=== PATIENT | female | born 1960 | race Caucasian/White ===

== ENCOUNTER 2016-04-27 07:00 | Emergency (ER) ==
[2016-04-27 07:00] VITALS: BMI 23.8
[2016-04-27 07:05] VITALS: BP 98/60; TEMP 101.1
--- NOTE | 2016-04-27 07:17 | ED.PDOC ---
General ED Provider: Dr. MIKHAIL CAMERON Chief Complaint: Sore Throat Stated Complaint: sore throat Time Seen by Physician: 07:00 Mode of Arrival: Walk-In Information Source: Patient Exam Limitations: No limitations Nursing and Triage Documentation Reviewed and Agree: Yes EENT Complaint Exam - Throat Complaint/Exam Onset/Duration: 2 days Symptoms Are: Still present Timimg: Constant Initial Severity: Moderate Current Severity: Moderate Alleviating: Reports: None Associated Signs and Symptoms: Reports: Nasal congestion Uvula Midline: Yes Uma-tonsillar Fluctuence: No Scarlatinaform Rash Present: No Stridor Present: No Sinus Tenderness Present: No Tonsillar Hypertrophy Present: No Tonsillar Exudate Present: No Uma-tonsillar Swelling Present: No Adenopathy Present: No Splenomegaly Present: No Review of Systems - Review Of Systems Constitutional: Reports: No symptoms Eyes: Reports: No symptoms Ears, Nose, Mouth, Throat: Reports: Throat pain Respiratory: Reports: No symptoms Cardiac: Reports: No symptoms GI: Reports: No symptoms : Reports: No symptoms Musculoskeletal: Reports: No symptoms Skin: Reports: No symptoms Neurological: Reports: No symptoms Endocrine: Reports: No symptoms Hematologic/Lymphatic: Reports: No symptoms All Other Systems: Reviewed and Negative Past Medical History - Past Medical History Previously Healthy: Yes Endocrine: Reports: None Cardiovascular: Reports: None Respiratory: Reports: None Hematological: Reports: None Gastrointestinal: Reports: None Genitourinary: Reports: Kidney stones Neuro/Psych: Reports: None, Depression Musculoskeletal: Reports: None Cancer: Reports: None Last Menstrual Period: n/a - Surgical History General Surgical History: Reports: None - Family History Family History: Reports: None - Social History Smoking Status: Never smoker Hx Substance Use: No Alcohol Screening: Occasionally Physical Exam - Physical Exam Appearance: Well-appearing, No pain distress, Well-nourished Eyes: QUANG, EOMI, Conjunctiva clear ENT: Erythema Respiratory: Airway patent, Breath sounds clear, Breath sounds equal, Respirations nonlabored Cardiovascular: RRR, Pulses normal, No rub, No murmur GI/: Soft, Nontender, No masses, Bowel sounds normal, No Organomegaly Musculoskeletal: Normal strength, ROM intact, No edema, No calf tenderness Skin: Warm, Dry, Normal color Neurological: Sensation intact, Motor intact, Reflexes intact, Cranial nerves intact, Alert, Oriented Psychiatric: Affect appropriate, Mood appropriate Critical Care Note - Critical Care Note Total Time (mins): 0 Course - Course Vital Signs: Temp Pulse Resp BP Pulse Ox 04/27/16 07:03 101.1 F H 97 H 16 98/60 96 Departure - Departure Time of Disposition: 07:16 Disposition: HOME SELF-CARE Discharge Problem: Sore throat symptom Pharyngitis Qualifiers: Pharyngitis/tonsillitis etiology: unspecified etiology Qualifier Code: (J02.9) Acute pharyngitis, unspecified Condition: Good Pt referred to PMD for follow-up: No Additional Instructions: Please call your Family Physician as soon as possible to schedule a follow-up appointment. Allergies/Adverse Reactions: Allergies codeine Allergy (Unverified 04/27/16 07:05) Penicillins Allergy (Unverified 04/27/16 07:05) Sulfa (Sulfonamide Antibiotics) Allergy (Unverified 04/27/16 07:05) nitrofurantoin [From Macrodantin] Adverse Reaction (Verified 04/27/16 07:05) steroids Allergy (Uncoded 04/27/16 07:05) Home Medications: Ambulatory Orders Hydroxyzine HCl 25 mg PO QID #120 03/29/16 Sertraline HCl [Zoloft] 200 mg PO BEDTIME #60 03/29/16 Topiramate [Topamax] 50 mg PO BID #60 03/29/16 Buspirone HCl 15 mg PO TID 04/18/16 Hydrocodone/Acetaminophen [[place] 5-325 Tablet] 1 each PO Q6HR PRN #12 tablet Meloxicam 15 mg PO DAILY 04/18/16 Nitrofurantoin Macrocrystal [Nitrofurantoin] 100 mg PO Q12H 04/18/16 Trazodone HCl 50 mg PO BEDTIME 04/18/16
[2016-04-27] MEDS ORDERED: LIDOCAINE 1 % AMP 5 ML (SUTURES) IM STA (07:18)
[2016-04-27] MEDS ORDERED: ROCEPHIN IM STA (07:18)
== END 2016-04-27 08:06 | disposition home or self-care (01) ==
LOC: ED 07:00
DX: J02.9 Acute pharyngitis, unspecified (principal)
CPT/HCPCS: 87651; 87880; 96372; 99283

== ENCOUNTER 2016-07-06 13:37 | Outpatient (CLI) ==
[2016-07-06 14:51] LABS: BILIRUBIN,URINE Negative (NEGATIVE); KETONES,URINE Trace (NEGATIVE); LEUKOCYTE ESTERASE ,URINE 2+ (NEGATIVE); NITRITE,URINE Negative (NEGATIVE); PROTEIN,URINE Negative (NEGATIVE); URINE, BLOOD 1+ (NEGATIVE)
[2016-07-06 14:54] LABS: ADD URINE MICROSCOPIC YES
[2016-07-06 14:55] LABS: BACTERIA,URINE 1+ (NOT PRESENT)
[2016-07-06 15:17] LABS: ALBUMIN 4.1 g/dL (3.4-5.0); BILIRUBIN,DIRECT 0.11 mg/dL (0.00-0.30); BILIRUBIN,TOTAL 0.25 mg/dL (0.00-1.20); TOTAL PROTEIN 7.8 g/dL (6.4-8.2)
--- NOTE | 2016-07-06 15:26 | DI ---
EXAM: Chest two view, frontal and lateral views. HISTORY: Cough. COMPARISON: None available. FINDINGS: The heart size is normal. There is no pulmonary vascular congestion. The lungs are paul r. No pleural effusion or pneumothorax is seen. No acute osseous abnormality identified. IMPRESSION: No acute cardiopulmonary process.
[2016-07-06 15:40] LABS: ERYTHROCYTE SEDIMENTATION RATE 18 mm/hr (0-20); ESR INTERNAL QC INTERNAL QC VALID
[2016-07-07 07:49] LABS: URINE CREATINE 298.7 mg/dL (Not Estab.)
[2016-07-08 09:49] LABS: URINE PROTEIN/CREATININE RATIO 59 mg/g creat (0-200)
[2016-07-08 09:50] LABS: C-REACTIVE PROTEIN 8.5 mg/L (0.0-4.9)
== END 2016-07-06 13:38 | disposition home or self-care (01) ==
LOC: LAB 13:37
PROVIDERS: ATTEND Internal Medicine Rheumatology
DX: M25.50 Pain in unspecified joint (principal); R76.8 Other specified abnormal immunological findings in serum
CPT/HCPCS: 36415; 80076; 81001; 82570; 84156; 85651; 86140; 86200; 86225; 86235

== ENCOUNTER 2016-09-20 09:15 | Outpatient (CLI) ==
--- NOTE | 2016-09-20 09:59 | DI ---
EXAM: Right shoulder three views HISTORY: Pain COMPARISON: None FINDINGS: No fracture dislocation. Mild osteophyte formation about the acromioclavicular joint. Gl enohumeral joint appears normal. No focal soft tissue abnormality. Visualized portion of the chest i s normal. IMPERSSION: Mild osteoarthritis acromioclavicular joint
--- NOTE | 2016-09-20 09:59 | DI ---
EXAM: Cervical spine five views HISTORY: Pain COMPARISON: None TECHNIQUE: Five views cervical spine performed including oblique views FINDINGS: Vertebral bodies normal height. No fracture. No subluxation. Straightening of the norm al cervical lordosis. Marginal osteophyte formation. Moderate intervertebral disc space narrowing C6-C7. Multilevel facet and uncovertebral hypertrophy. Degenerative changes cause mild multilevel bilateral neural foraminal narrowing. Additionally, on the left, there appears to be moderate to se guzman neural foraminal narrowing at C3-C4, though this may be accentuated by positioning, as well as moderate neural foraminal narrowing at C6-C7. Prevertebral soft tissues appear normal. IMPRESSION: 1. No fracture or subluxation. 2. Chronic discogenic degenerative disease with neural foraminal narrowing as described. Findings can be correlated with MRI. 3. Straightening of the normal cervical lordosis.
== END 2016-09-20 09:16 | disposition home or self-care (01) ==
LOC: RAD 09:15
PROVIDERS: ATTEND Physician Assistant Medical
DX: M25.511 Pain in right shoulder (principal); M54.2 Cervicalgia

== ENCOUNTER 2016-10-01 10:31 | Outpatient (CLI) ==
--- NOTE | 2016-10-01 17:54 | MRI ---
EXAM: Cervical spine MRI without contrast. HISTORY: Neck pain. COMPARISON: Cervical spine radiographs 09/20/2016. TECHNIQUE: Multiplanar, multisequence MR images were acquired of the cervical spine without contras t. FINDINGS: There is no cerebellar tonsillar ectopia and the cervical cord has normal signal intensit y. There is minor mid cervical levoscoliosis centered at C4-5 and mild cervicothoracic dextroscolio sis centered at C6-7. There is straightening of the usual cervical lordosis and 1 mm anterolisthesi s of C7 on T1. The cervical vertebra are generally normal in height and intrinsic bone marrow signa l. At C6-7, there is osteophytosis with disc space narrowing and moderate degenerative endplate farzana nges with reactive dark STIR signal sclerosis along the endplates which are greatest left laterally. This is compatible with chronic increased stress at this level. A few small perineural cysts are p resent. There are no paravertebral masses. There is mild mucosal thickening in the sphenoid sinus. The visualized lung apices are clear. C2-3: The intervertebral disc is normal. Mild right hypertrophic facet arthropathy is present witho ut foraminal stenosis. C3-4: There is a minor dorsal spondylotic ridge with mild thickening of the left paracentral professor of pathology ior longitudinal ligament. Mild left and mild to moderate right hypertrophic facet arthropathy is p resent without central canal stenosis or foraminal stenosis. C4-5: There is a mild dorsal spondylotic disc bulge with a possible tiny central disc protrusion th at minimally indents the cervical cord. Minor left uncovertebral hypertrophy and mild right hypertr ophic facet arthropathy is present. This causes mild to moderate right neural foraminal stenosis an d minor spinal stenosis. AP diameter of the thecal sac is 9.6 mm. C5-6: There is a minor posterior disc osteophyte complex with a small central disc protrusion that mildly indents the cervical cord. Ligamentum flavum hypertrophy, minor right uncovertebral hypertrop hy and mild right facet arthropathy is present. There is mild spinal stenosis and mild left and mil d to moderate right neural foraminal stenosis. AP diameter of the thecal sac is 8.6 mm. C6-7: There is a moderate diffuse disc osteophyte complex, ligamentum flavum hypertrophy, mild left hypertrophic facet arthropathy and bilateral uncovertebral hypertrophy. There is mild spinal steno sis and severe left neural foraminal stenosis. AP diameter of the thecal sac is 7.8 mm. C7-T1: There is a small posterior disc bulge, minor left uncovertebral hypertrophy and mild to mode rate left hypertrophic facet arthropathy. There is mild left foraminal stenosis. IMPRESSION: 1. Mild cervicothoracic dextroscoliosis centered at C6-7 and moderate discogenic disease C6-7 that is greatest left laterally suggestive of chronic increased stress at this level. 2. Mild disc osteophyte complex C5-6 with small central disc protrusion that mildly indents the cer vical cord without edema. 3. Mild spinal stenosis C5-6 and C6-7. 4. Mild to moderate right C4-5, mild to moderate left C5-6 and severe left C6-[address] enosis.
== END 2016-10-01 10:32 | disposition home or self-care (01) ==
LOC: RAD 10:31
PROVIDERS: ATTEND Physician Assistant Medical
DX: M54.2 Cervicalgia (principal)

== ENCOUNTER 2016-10-19 15:55 | Outpatient (CLI) ==
[2016-10-19 16:16] LABS: HEMATOCRIT 43.8 % (37.0-47.0); HEMOGLOBIN 15.1 g/dl (12.0-16.0); MEAN CORPUSCULAR HEMOGLOBIN 31.2 pg (27.0-31.0); MEAN CORPUSCULAR HGB CONC 34.5 (31.8-35.4); MEAN CORPUSCULAR VOLUME 90.5 fl (81.0-99.0); RED BLOOD COUNT 4.84 10^6/ul (4.20-5.40); WHITE BLOOD COUNT 8.42 K/ul (4.6-10.2)
[2016-10-19 16:33] LABS: ALBUMIN 4.2 g/dL (3.4-5.0); ALBUMIN/GLOBULIN RATIO 1.31; BILIRUBIN,TOTAL 0.52 mg/dL (0.00-1.20); BUN/CREATININE RATIO 13.09; CALCIUM 9.6 mg/dL (8.2-10.2); CREATININE 0.84 mg/dL (0.60-1.30); TOTAL PROTEIN 7.4 g/dL (6.4-8.2)
== END 2016-10-19 15:56 | disposition home or self-care (01) ==
LOC: LAB 15:55
PROVIDERS: ATTEND Internal Medicine Rheumatology
DX: M06.9 Rheumatoid arthritis, unspecified (principal)
CPT/HCPCS: 36415; 80053; 85027

== ENCOUNTER 2016-10-22 10:02 | Outpatient (RCR) | END 2016-11-19 | PROVIDERS: ATTEND Physician Assistant Medical | DX: M54.5 Low back pain (principal) ==

== ENCOUNTER 2016-12-18 15:00 | Outpatient (RCR) ==
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
--- NOTE | 2016-11-26 16:22 | RS.OPPTDN ---
Subjective Date of Note: 11/26/16 Visit #: 2 Date of Evaluation: 11/20/16 Payer Source: Medicaid Treatment Diagnosis: Neck pain Current Subjective/complaints:: Patient says she had a little soreness to her neck after her previous session. She presents with her service dog. Pain Assessment - Pain Description Pain Location: neck/shoulder Current Pain Intensity: 5/10 - Heat/Cryotherapy Treatment: Hot Pack (20 mins cervical in supine) - Traction Treatment Method: Mechanical, Intermittent, Cervical Patient Position: Supine Amount of Force Applied: 13-14 Hold Time: 25 Rest Time: 5 Duration of treatment: 15 Traction Treatment Comment: 2 steps, 1# minimum Interventions - Exercise/Activities/Manual Therapy Exercises/Activities: Encouraged continued HEP and use of heat/ice Manual Therapy: NA - Charges Total Direct Minutes: 5 Total Treatment Time: 40 Procedures billed for this date of service:: hp, mechanical traction Assessment: Patient teresa increased traction well with admitting improved neck ROM /soreness after session today. Patient Education: Education of diagnosis, Body/Joint mechanics, Home Exercise Program, Home Safety, Activity Modification, Education of Plan of Care Patient demonstrates compliance with HEP?: Yes Short Term Goals Goal #1: Pt independent in basic HEP. Goal to be met by: 12/04/16 Progress towards Goal:: Progressing Goal #2: Radiating symtpoms decreased to occasional. Goal to be met by: 12/04/16 Goal #3: Muscle tone along the cervical paraspinals decreased to normal. Goal to be met by: 12/04/16 Alf Goals Goal #1: Pt knows HEP and to continue ex's to maintain functional level at D/C. Goal to be met by: 01/04/17 Goal #2: Score on Neck Disability index improved to 40. Goal to be met by: 01/04/17 Goal #3: Pt to perform ADL's and recreational activities w/o neck or UE pain. Goal to be met by: 01/04/17 Goal #4: Pt to demonstrate good postural awareness. Goal to be met by: 01/04/17 Plan PLAN OF CARE EXPIRES ON:: 01/04/17 ORDER # VISITS AND/OR THROUGH DATE: 01/04/17 PLAN: Continue Plan of Care (progress traction)
--- NOTE | 2016-11-29 16:45 | RS.OPPTDN ---
Subjective Date of Note: 11/29/16 Visit #: 3 Date of Evaluation: 11/20/16 Payer Source: Medicaid Treatment Diagnosis: Neck pain Current Subjective/complaints:: Patient says neck pain felt better with last session. She says increase in traction did not bother her. She c/o R sciatica and inquires of PT for this condition. Pain Assessment - Pain Description Pain Location: neck/shoulder Current Pain Intensity: 4/10 - Heat/Cryotherapy Treatment: Hot Pack (cervical x 20 mins in supine) - Traction Treatment Method: Mechanical, Intermittent, Cervical Patient Position: Supine Amount of Force Applied: 15-16 Hold Time: 25 Rest Time: 5 Duration of treatment: 20 Traction Treatment Comment: 2 steps Interventions - Exercise/Activities/Manual Therapy Exercises/Activities: Encouraged continued HEP and use of heat/ice. Discussed sciatica and using ice/tennis ball for pressure points. Provided tennis ball today. Manual Therapy: NA - Charges Total Direct Minutes: 10 Total Treatment Time: 50 Procedures billed for this date of service:: hp, mechanical traction Assessment: Patient teresa increasing weight of traction with less neck pain following session. Patient received education on sciatica per inquiry and tennis ball for self pressure techniques. Patient Education: Education of diagnosis, Body/Joint mechanics, Home Exercise Program, Home Safety, Activity Modification, Education of Plan of Care Patient demonstrates compliance with HEP?: Yes Short Term Goals Goal #1: Pt independent in basic HEP. Goal to be met by: 12/04/16 Progress towards Goal:: Progressing Goal #2: Radiating symtpoms decreased to occasional. Goal to be met by: 12/04/16 Progress towards Goal:: Progressing Goal #3: Muscle tone along the cervical paraspinals decreased to normal. Goal to be met by: 12/04/16 [facility] Goals Goal #1: Pt knows HEP and to continue ex's to maintain functional level at D/C. Goal to be met by: 01/04/17 Goal #2: Score on Neck Disability index improved to 40. Goal to be met by: 01/04/17 Goal #3: Pt to perform ADL's and recreational activities w/o neck or UE pain. Goal to be met by: 01/04/17 Goal #4: Pt to demonstrate good postural awareness. Goal to be met by: 01/04/17 Plan PLAN OF CARE EXPIRES ON:: 01/04/17 ORDER # VISITS AND/OR THROUGH DATE: 01/04/17 PLAN: Continue Plan of Care (advancing traction, postural exercises)
--- NOTE | 2016-12-04 10:19 | RS.CXNS ---
Date of scheduled appointment: 12/04/16 Type: Cancel Reason for Cancel/NS: sick
--- NOTE | 2016-12-06 16:42 | RS.OPPTDN ---
Subjective Date of Note: 12/06/16 Visit #: 4 Date of Evaluation: 11/20/16 Payer Source: Medicaid Treatment Diagnosis: Neck pain Current Subjective/complaints:: Patient says she has just taken her 4th chemo treatment today and feels nauseated. She presents with her service dog. Pain Assessment - Pain Description Pain Location: neck/shoulder Current Pain Intensity: 4/10 - Heat/Cryotherapy Treatment: Hot Pack (20 mins cervical in supine) - Traction Treatment Method: Mechanical, Intermittent, Cervical Patient Position: Supine Amount of Force Applied: 16 Hold Time: 25 Rest Time: 5 Duration of treatment: 20 Interventions - Exercise/Activities/Manual Therapy Exercises/Activities: Encouraged continued HEP and use of heat/ice. Discussed sciatica and using ice/tennis ball for pressure points. Provided tennis ball today. Manual Therapy: NA - Charges Total Direct Minutes: 10 Total Treatment Time: 30 Procedures billed for this date of service:: hp, mechanical traction Assessment: Patient progressing with pain level and muscle tightness. She teresa increased poundage well. Will continue to progress traction and begin therex to the shoulder. Patient Education: Education of diagnosis, Body/Joint mechanics, Home Exercise Program, Home Safety, Activity Modification, Education of Plan of Care Patient demonstrates compliance with HEP?: Yes Short Term Goals Goal #1: Pt independent in basic HEP. Goal to be met by: 12/04/16 Progress towards Goal:: Progressing Goal #2: Radiating symtpoms decreased to occasional. Goal to be met by: 12/04/16 Progress towards Goal:: Progressing Goal #3: Muscle tone along the cervical paraspinals decreased to normal. Goal to be met by: 12/04/16 Prison Goals Goal #1: Pt knows HEP and to continue ex's to maintain functional level at D/C. Goal to be met by: 01/04/17 Goal #2: Score on Neck Disability index improved to 40. Goal to be met by: 01/04/17 Goal #3: Pt to perform ADL's and recreational activities w/o neck or UE pain. Goal to be met by: 01/04/17 Goal #4: Pt to demonstrate good postural awareness. Goal to be met by: 01/04/17 Plan PLAN OF CARE EXPIRES ON:: 01/04/17 ORDER # VISITS AND/OR THROUGH DATE: 01/04/17 PLAN: Continue Plan of Care
--- NOTE | 2016-12-11 16:45 | RS.OPPTDN ---
Subjective Date of Note: 12/11/16 Visit #: 5 Date of Evaluation: 11/20/16 Payer Source: Medicaid Treatment Diagnosis: Neck pain Current Subjective/complaints:: Patient c/o mild pain at the L shoulder blade. She says therapy feels like it is helping and she wished she was able to have a home traction unit due to the improvement in neck pain. Pain Assessment - Pain Description Pain Location: L scapula Current Pain Intensity: 4/10 - Heat/Cryotherapy Treatment: Hot Pack (cross finley over the L scapula and neck x 20 mins in supine) - Traction Treatment Method: Mechanical, Intermittent, Cervical Patient Position: Supine Amount of Force Applied: 18-19 Hold Time: 25 Rest Time: 5 Duration of treatment: 20 Interventions - Exercise/Activities/Manual Therapy Exercises/Activities: Patient sits at EOB for shoulder shrugs and scapular adduction, 1# wand for bilateral shoulder flexion to WNL, red tband for scap retraction (given for home use). Encouraged continued HEP and use of heat/ice. Discussed sciatica and using ice/tennis ball for pressure points. Provided tennis ball today. Total minutes of Exercise: 5 Manual Therapy: NA - Charges Total Direct Minutes: 5 Total Treatment Time: 45 Procedures billed for this date of service:: hp, traction (mechanical) Assessment: Patient experiencing relief with today's traction poundage more so than any other previous treatment. She was able to perform all therex without c /o's. Received tband to work on scapular/posture exercises at home. Decreased scapular pain at end of session. Patient Education: Education of diagnosis, Body/Joint mechanics, Home Exercise Program, Home Safety, Activity Modification, Education of Plan of Care Patient demonstrates compliance with HEP?: Yes Short Term Goals Goal #1: Pt independent in basic HEP. Goal to be met by: 12/04/16 Progress towards Goal:: Progressing Goal #2: Radiating symtpoms decreased to occasional. Goal to be met by: 12/04/16 Progress towards Goal:: Progressing Goal #3: Muscle tone along the cervical paraspinals decreased to normal. Goal to be met by: 12/04/16 Progress towards Goal:: Progressing Specialist Managers Goals Goal #1: Pt knows HEP and to continue ex's to maintain functional level at D/C. Goal to be met by: 01/04/17 Goal #2: Score on Neck Disability index improved to 40. Goal to be met by: 01/04/17 Goal #3: Pt to perform ADL's and recreational activities w/o neck or UE pain. Goal to be met by: 01/04/17 Goal #4: Pt to demonstrate good postural awareness. Goal to be met by: 01/04/17 Plan PLAN OF CARE EXPIRES ON:: 01/04/17 ORDER # VISITS AND/OR THROUGH DATE: 01/04/17 PLAN: Continue Plan of Care (continue x 1 more session)
--- NOTE | 2016-12-13 13:22 | RS.CXNS ---
Date of scheduled appointment: 12/13/16 Type: Cancel Reason for Cancel/NS: sick from chemo, rescheduled
--- NOTE | 2016-12-18 16:35 | RS.OPPTDN ---
Subjective Date of Note: 12/18/16 Visit #: 6 Date of Evaluation: 11/20/16 Payer Source: Medicaid Treatment Diagnosis: Neck pain Current Subjective/complaints:: Patient says she hurt her upper L side of her back by opening a window. She says she had slight soreness to her neck after last traction treatment, but was better the next morning. She requests to return to PT if she receives her letter that approves more visits. Christiane reports performing HEP without difficulty. Pain Assessment - Pain Description Pain Location: L scapula, L shoulder and mid to upper back Current Pain Intensity: 4/10 - Heat/Cryotherapy Treatment: Hot Pack (over the L shoulder and neck x 20 mins supine) - Traction Treatment Method: Mechanical, Intermittent, Cervical Patient Position: Supine Amount of Force Applied: 20 Hold Time: 25 Rest Time: 5 Duration of treatment: 20 Traction Treatment Comment: 2 steps Interventions - Exercise/Activities/Manual Therapy Exercises/Activities: Patient encouraged to continue HEP and instructed in standing and prone prayer stretch for the upper/mid back during heat/traction. Total minutes of Exercise: 20 Manual Therapy: NA - Charges Total Direct Minutes: 20 Total Treatment Time: 60 Procedures billed for this date of service:: hp, mechanical traction Assessment: Patient with recent c/o mid to upper back pain. She is also having intermittent tingling to the L UE. Patient Education: Education of diagnosis, Body/Joint mechanics, Home Exercise Program, Home Safety, Activity Modification, Education of Plan of Care Patient demonstrates compliance with HEP?: Yes Short Term Goals Goal #1: Pt independent in basic HEP. Goal to be met by: 12/04/16 Progress towards Goal:: Progressing Goal #2: Radiating symtpoms decreased to occasional. Goal to be met by: 12/04/16 Progress towards Goal:: Progressing Goal #3: Muscle tone along the cervical paraspinals decreased to normal. Goal to be met by: 12/04/16 Progress towards Goal:: Progressing Head Up Operator Helper Goals Goal #1: Pt knows HEP and to continue ex's to maintain functional level at D/C. Goal to be met by: 01/04/17 Progress towards goal: Progressing Goal #2: Score on Neck Disability index improved to 40. Goal to be met by: 01/04/17 Progress towards goal: Progressing Goal #3: Pt to perform ADL's and recreational activities w/o neck or UE pain. Goal to be met by: 01/04/17 Goal #4: Pt to demonstrate good postural awareness. Goal to be met by: 01/04/17 Plan PLAN OF CARE EXPIRES ON:: 01/04/17 ORDER # VISITS AND/OR THROUGH DATE: 01/04/17 Comments:: We are holding chart in order to see if further visits are approved via [employer]. Patient will call us once she has received the letter and may resume treatment then. She is also going to contact her insurance to see if they will approve a home traction device along with looking online.
== END 2016-12-20 ==
PROVIDERS: ATTEND Internal Medicine Rheumatology
DX: M54.2 Cervicalgia (principal)

== ENCOUNTER 2017-01-04 15:00 | Outpatient (RCR) ==
[2016-04-27 07:24] VITALS: BMI 23.8
--- NOTE | 2017-01-01 16:21 | RS.OPPTDN ---
Subjective Date of Note: 01/01/17 Visit #: 7 Date of Evaluation: 11/20/16 Payer Source: Medicaid Treatment Diagnosis: Neck pain Current Subjective/complaints:: Patient says her pain has been elevated lately she relates to damp, cooler weather. She admits today having tingling running down the L arm to hand. She reports daily DENNY for one week. She is eager to continue to progress traction. Pain Assessment - Pain Description Pain Location: L scapula, L shoulder and mid to upper back Current Pain Intensity: 4/10 - Heat/Cryotherapy Treatment: Hot Pack (20 mins to the L side of the neck and scapula in supine) - Traction Treatment Method: Mechanical, Intermittent, Cervical Patient Position: Supine Amount of Force Applied: 20-21 Hold Time: 25 Rest Time: 5 Duration of treatment: 20 Traction Treatment Comment: 2 steps Interventions - Exercise/Activities/Manual Therapy Exercises/Activities: Patient encouraged to continue HEP and instructed in standing and prone prayer stretch for the upper/mid back during heat/traction. Manual Therapy: occipital release and manual cervical traction x 10 mins. Assisted cervical SB and rotation in supine utilized until mechanical traction room was available. Total minutes of Manual Therapy: 10 - Charges Total Direct Minutes: 10 Total Treatment Time: 50 Procedures billed for this date of service:: hp, mechanical traction Assessment: Patient with elevated pain today possibly due to weather changes as well as hx of fibromyalgia. Patient presently having intermittent tingling to the L UE to hand. During manual therapy, patient voiced improved neck pain and feeling of UE radiculopathy. After mechanical traction, patient voiced improved DENNY and neck tension. Patient Education: Education of diagnosis, Body/Joint mechanics, Home Exercise Program, Home Safety, Activity Modification, Education of Plan of Care Patient demonstrates compliance with HEP?: Yes Short Term Goals Goal #1: Pt independent in basic HEP. Goal to be met by: 12/04/16 Progress towards Goal:: Progressing Goal #2: Radiating symtpoms decreased to occasional. Goal to be met by: 12/04/16 Progress towards Goal:: Progressing Goal #3: Muscle tone along the cervical paraspinals decreased to normal. Goal to be met by: 12/04/16 Progress towards Goal:: Progressing Underwriting Intern Goals Goal #1: Pt knows HEP and to continue ex's to maintain functional level at D/C. Goal to be met by: 01/04/17 Progress towards goal: Progressing Goal #2: Score on Neck Disability index improved to 40. Goal to be met by: 01/04/17 Progress towards goal: Progressing Goal #3: Pt to perform ADL's and recreational activities w/o neck or UE pain. Goal to be met by: 01/04/17 Goal #4: Pt to demonstrate good postural awareness. Goal to be met by: 01/04/17 Plan PLAN OF CARE EXPIRES ON:: 01/04/17 ORDER # VISITS AND/OR THROUGH DATE: 01/04/17
--- NOTE | 2017-01-03 14:43 | RS.CXNS ---
Date of scheduled appointment: 01/03/17 Type: No Show
== END 2017-01-19 ==
PROVIDERS: ATTEND Internal Medicine Rheumatology
DX: M54.2 Cervicalgia (principal)

== ENCOUNTER 2017-01-30 15:57 | Outpatient (CLI) ==
[2016-04-27 07:24] VITALS: BMI 23.8
[2017-01-30 16:13] LABS: BASOPHILS % (AUTO) 0.4 % (0.0-3.0); EOSINOPHILS # (AUTO) 0.1 K/ul (0.0-0.7); EOSINOPHILS % (AUTO) 1.1 % (0.0-7.0); HEMATOCRIT 39.9 % (37.0-47.0); HEMOGLOBIN 13.8 g/dl (12.0-16.0); IMMATURE GRANULOCYTE % (AUTO) 0.8 % (0.0-5.0); LYMPHOCYTES # (AUTO) 2.6 K/uL (0.60-3.4); LYMPHOCYTES % (AUTO) 28.5 (10.0-50.0); MEAN CORPUSCULAR HEMOGLOBIN 31.4 pg (27.0-31.0); MEAN CORPUSCULAR HGB CONC 34.6 (31.8-35.4); MEAN CORPUSCULAR VOLUME 90.9 fl (81.0-99.0); MONOCYTES # (AUTO) 0.5 K/uL (0.4-2.0); NEUTROPHILS # (AUTO) 5.7 K/ul (2.0-6.9); NEUTROPHILS % (AUTO) 63.2; PLATELET COUNT 256 10^3/uL (140-440); RED BLOOD COUNT 4.39 10^6/ul (4.20-5.40); WHITE BLOOD COUNT 8.99 K/ul (4.6-10.2)
[2017-01-30 16:37] LABS: ALBUMIN/GLOBULIN RATIO 1.21; ANION GAP 14.8; BILIRUBIN,TOTAL 0.4 mg/dL (0.00-1.20); BUN/CREATININE RATIO 15.11; CREATININE 0.86 mg/dL (0.60-1.30); POTASSIUM 3.8 mmol/L (3.5-5.10); TOTAL PROTEIN 7.3 g/dL (6.4-8.2)
== END 2017-01-30 15:58 | disposition home or self-care (01) ==
LOC: LAB 15:57
PROVIDERS: ATTEND Internal Medicine Rheumatology
DX: Z79.899 Other long term (current) drug therapy (principal)
CPT/HCPCS: 36415; 80053; 85025

== ENCOUNTER 2017-05-15 14:11 | Outpatient (CLI) ==
[2016-04-27 07:24] VITALS: BMI 23.8
--- NOTE | 2017-05-15 16:46 | DI ---
EXAM: Three views of the right hand HISTORY: Rheumatoid arthritis. COMPARISON: None FINDINGS: There is no cortical irregularity or displaced fracture of the right hand. There is no lyt ic or blastic lesion. The joint spaces are maintained. There is no lytic or blastic lesion. Soft t issues are normal. IMPRESSION: No acute abnormality or displaced fracture of the right hand.
--- NOTE | 2017-05-15 16:47 | DI ---
EXAM: Three views of the left hand HISTORY: Rheumatoid arthritis. COMPARISON: Same day, opposite hand x-rays FINDINGS: There is no cortical irregularity or displaced fracture of the left hand. There is no lyti c or blastic lesion. The joint spaces are maintained. There is no significant narrowing or osteophy te formation. There is minimal narrowing the radiocarpal joint. Soft tissues are unremarkable. IMPRESSION: Minimal radiocarpal joint narrowing with no acute osseous abnormality otherwise identifi ed.
--- NOTE | 2017-05-15 16:49 | DI ---
EXAM: Two views of the left foot HISTORY: Rheumatoid arthritis. COMPARISON: Same day, opposite foot FINDINGS: There is no cortical irregularity or displaced fracture of the left foot. The joint spaces are maintained. The arch is maintained. The soft tissues are unremarkable. IMPRESSION: No acute abnormality of the left foot.
--- NOTE | 2017-05-15 16:49 | DI ---
EXAM: Two views of the right foot HISTORY: Rheumatoid arthritis. COMPARISON: Left foot x-rays same day FINDINGS: There is no cortical irregularity or displaced fracture. The joint spaces are maintained. The arch is maintained. The soft tissues are normal. There is no lytic or blastic lesion. IMPRESSION: No acute abnormality or displaced fracture of the right foot.
--- NOTE | 2017-05-15 16:50 | DI ---
EXAM: Single view of the pelvis and two views of the hips HISTORY: Rheumatoid arthritis. COMPARISON: CT abdomen pelvis 04/18/2016 FINDINGS: The pelvic ring is intact. There is no cortical irregularity or displaced fracture. Sacro iliac joints and pubic symphysis are normal. The dedicated views of the hips are normal. There is n o narrowing, osteophyte formation. There is no displaced fracture. IMPRESSION: No acute abnormality of the hips or pelvis.
== END 2017-05-15 14:12 | disposition home or self-care (01) ==
LOC: LAB 14:11
PROVIDERS: ATTEND Internal Medicine Rheumatology
DX: M05.79 Rheumatoid arthritis with rheumatoid factor of multiple sites without organ or systems involvement (principal); E78.2 Mixed hyperlipidemia; E55.0 Rickets, active; R30.0 Dysuria
CPT/HCPCS: 36415; 80053; 80061; 81001; 82306; 84439; 84443; 85025

== ENCOUNTER 2017-06-18 14:00 | Outpatient (RCR) ==
[2016-04-27 07:24] VITALS: BMI 23.8
--- NOTE | 2017-06-17 13:27 | RS.OPPTEV2 ---
Date of Note: 06/14/17 Visit #: 1 Date of Evaluation: 06/14/17 Payer Source: Medicaid Treatment Diagnosis: Left hip pain History of Condition/Mechanism of Injury:: Patient reports left hip pain for approximately a year. States it has been more consistent over the last few months. Reports no injury to the left hip. States she did injure the right hip in 1999, and states she could not walk and then may have compensated with the left LE when she was able to start walking again. Prior Level of Function.....Patient was independent with: ADL's, Self Care, Caregiving, Ambulation/Mobility, Community Integration/Access Functional Limitations: Standing, Bending, Squatting, Ambulation, Community Access/Integration Current Subjective/complaints:: Patient reports left hip pain. States it feels like a catch on the inside, in the groin. States it happens sporadically with getting up or turning while standing. She denies tingling or numbness. States pain in the left hip is not necessarily with weight bearing. Does reports pain with ascending/descending stairs. She has to negotiate stairs to get to her apartment. States her pain has been more continuous for the last few months. Medical History Medical History: Arthritis (Rheumatoid) Medical History Comments:: PTSD,RA, Fibromyalgia Surgical History: Tonsillectomy, Hysterectomy Smoking Status: Former smoker Hx Home Medications: Tylenol,gabapentin,Zoloft,buspar,flexeril,mobic,arava Patient's Goals: Her goal is to get relief of left hip pain. Pain Assessment - Pain Description Pain Location: left hip, groin region Current Pain Intensity: 5/10 Worst Pain Intensity: 10/10 Functional Outcome Measure LE Functional Scale: 20 (20/80=75% impairment) - G Codes & Severity Modifier G Codes & Modifier: NA Source of G Code score: NA Observation - Observation Inspection: Standing posture demonstrates slight decrease in lumbar lordosis and slight IR of of both hips. Posture: Scoliosis Comments: Right iliac crest higher in standing. Gait - Gait Pattern Gait Comments: Patient ambulates independently, without an assistive device. She demonstrates slightly less stance phase on the left LE and decreased left hip and knee flexion during swing phase. - Special Tests SLR Test: Negative Left Seated Dural Stretch Test: Negative Left SI Joint Compression: Negative Comments: Supine hip IR or ER with legs extended does not reproduce symptoms. Hip ROM: Right WFL's Hip Muscle Strength: Right WFL's - Left Hip ROM Comments: Left hip AROM limited by pain into flexion beyond 100 degrees, adduction past midline, and abduction past 30 degrees. ER is approximately 50% of normal range and IR causes discomfort. - Left Hip Strength Comments: Left hip strength : flexion 4/5, abd 4/5, adduction 4/5, ER and IR 4-/ 5, extension 4+/5. Some discomfort reported with MMT hip abduction and adduction. - Special Test DIANNA Test: Negative Right, Positive Left Gavi Test: Positive Left, Positive Right Palpation Comments:: Patient reports slight tenderness over bilateral greater trochanter, but this is not a reproduction of symptoms. Additional Comments: Additional Comments: Long axis distraction through the left LE does not change her symptoms. Compression to the hip joiint through the femur causes discomfort , but does not reproduce her symtpoms. Right LE is shorter in supine. Bilateral SLR to 50-55 degrees. Interventions - Exercise/Activities/Manual Therapy Exercises/Activities: Hip adductor stretch in supine and HS stretch given for HEP. Manual Therapy: NA HOME EXERCISE PROGRAM: Hip adductor stretch in supine and HS stretch given for HEP - Charges Timed Code Treatment Minutes: 0 Total Treatment Time: 50 mins Procedures billed for this date of service:: EVAL Medium EVALUATION COMPLEXITY LEVEL EVALUATION COMPLEXITY LEVEL: HISTORY: Medium (RA, Fibromyalgia), EXAM OF BODY SYSTEMS: Medium, CLINICAL PRESENTATION: Medium, CLINICAL DECISION MAKING: Medium Assessment Assessment: Patient presents to therapy with a diagnosis of left hip pain. She reports pain progressively becoming more continuous over the last few months. Discomfort is reported to be more in the groin, rather than the lateral aspect of the hip. The left hip has less joint mobility than the right hip. She demonstrates potential to get relief of hip pain from stretching to the left hip and progression of stability exercises for the trunk and hips. Patient Education: Education of diagnosis, Body/Joint mechanics, Home Exercise Program, Activity Modification, Education of Plan of Care Rehab Potential: Good Short Term Goals Goal #1: Pt independent and compliant in HEP. Goal to be met by: 07/01/17 Goal #2: Left hip ER WFL's. Goal to be met by: 07/01/17 Goal #3: Left hip pain decreased to occasional. Goal to be met by: 07/01/17 Correction Goals Goal #1: Pt knows HEP and to continue ex's to maintain functional level at D/C. Goal to be met by: 07/27/17 Goal #2: Score on LE functional scale improved to 40/80. Goal to be met by: 07/27/17 Goal #3: Pt to report seldom left hip pain with mobility. Goal to be met by: 07/27/17 Goal #4: Pt able to ascend/descend stairs to her apartment with min. discomfort. Goal to be met by: 07/27/17 Plan - Treatment to be Provided Procedures: Therapeutic Exercises, Therapeutic Activity, Manual Therapy, Patient Education Modalities: Electrical Stimulation, Ultrasound/Phonophoresis, Hot Packs, Mechanical Traction (cervical) - Treatment Plan Frequency: 3 X week Duration: 4 weeks ORDER # VISITS AND/OR THROUGH DATE: 07/27/17 - Treatment Code (1) Hip pain Code(s): M25.559 - PAIN IN UNSPECIFIED HIP Qualifiers: Laterality: left Qualified Code(s): M25.552 - Pain in left hip
--- NOTE | 2017-06-18 15:08 | RS.OPPTDN ---
Subjective Date of Note: 06/18/17 Visit #: 2 Date of Evaluation: 06/14/17 Payer Source: Medicaid Treatment Diagnosis: Left hip pain Current Subjective/complaints:: Patient c/o bilateral hip pain today. She does not rate, but does say the L remains to be worse than R. She says she no longer is taking chemo for her pain because of the side effects. She says although those side effects are gone, she remains with significant pain throughout her body. Christiane reports her MD is trying to find something else that can benefit her. Pain Assessment - Pain Description Pain Location: bilateral hips today among her pain in general joints - Heat/Cryotherapy Treatment: Hot Pack (across the L hip and lateral portion of the LE x 15 mins sidelying) Interventions - Exercise/Activities/Manual Therapy Exercises/Activities: Patient begins with passive stretching of SKTC, Piriformis , lower trunk rotation, fig 4, and HS for the L LE x 3. Heel cord stretch x 3. Patient began pillow squeezes, QS, isometric hip abd/flexion x 10. Total minutes of Exercise: 16 Manual Therapy: NA HOME EXERCISE PROGRAM: Hip adductor stretch in supine and HS stretch given for HEP - Charges Timed Code Treatment Minutes: 16 Total Treatment Time: 36 Procedures billed for this date of service:: hp, ex Assessment: Patient appears to teresa treatment well today with having only mild fatigue. She has initiated HEP. Patient experiences mild fatigue while performing HEP and todays therex, but no real increase in pain voiced. Heat did relief pain enough to allow relaxation with stretches. Patient Education: Education of diagnosis, Body/Joint mechanics, Home Exercise Program, Education of Plan of Care Patient demonstrates compliance with HEP?: Yes Short Term Goals Goal #1: Pt independent and compliant in HEP. Goal to be met by: 07/01/17 Goal #2: Left hip ER WFL's. Goal to be met by: 07/01/17 Goal #3: Left hip pain decreased to occasional. Goal to be met by: 07/01/17 Chcf Goals Goal #1: Pt knows HEP and to continue ex's to maintain functional level at D/C. Goal to be met by: 07/27/17 Goal #2: Score on LE functional scale improved to 40/80. Goal to be met by: 07/27/17 Goal #3: Pt to report seldom left hip pain with mobility. Goal to be met by: 07/27/17 Goal #4: Pt able to ascend/descend stairs to her apartment with min. discomfort. Goal to be met by: 07/27/17 Plan PLAN OF CARE EXPIRES ON:: 07/27/17 ORDER # VISITS AND/OR THROUGH DATE: 07/27/17 PLAN: Patient to continue TIW for therex to the LE
== END 2017-06-19 ==
PROVIDERS: ATTEND Internal Medicine Rheumatology
DX: M05.79 Rheumatoid arthritis with rheumatoid factor of multiple sites without organ or systems involvement (principal)

== ENCOUNTER 2017-06-23 09:37 | Emergency (ER) ==
[2017-06-23 09:46] VITALS: BP 96/69; TEMP 97.7; BMI 24.5
--- NOTE | 2017-06-23 10:11 | ED.PDOC ---
General ED Provider: Dr. KERWIN BARTON-ER Chief Complaint: Neck Pain Non-Injury Stated Complaint: my neck hurts-it started yesterday Time Seen by Physician: 10:09 Mode of Arrival: Walk-In Information Source: Patient, Family Exam Limitations: No limitations Primary Care Provider: ELOY RODRIGUEZ Nursing and Triage Documentation Reviewed and Agree: Yes Reviewed sepsis parameters & appropriate labs ordered?: Yes System Inflammatory Response Syndrome: Not Applicable Sepsis Protocol: For patient's 13 years and over: Temp is 96.8 and below OR 101 and greater Pulse >90 BPM Resp >20/minute Acutely Altered Mental Status Are patient's symptoms suggestive of a new infection, such as: -Pneumonia -Skin, Soft Tissue -Endocarditis -UTI -Bone, Joint Infection -Implantable Device -Acute Abdominal Infection -Wound Infection -Meningitis -Blood Stream Catheter Infection -Unknown Musculoskeletal Complaint Exam - Neck Pain Complaint/Exam Mechanism of Injury: Reports: No known trauma Onset/Duration: 24 hrs Symptoms Are: Still present Timing: Constant Initial Severity: Mild Current Severity: Moderate Location: Reports: Discrete (posterior neck) Character: Reports: Dull, Aching, Spasmodic, Stiffness Aggravating: Reports: Position, Movement Alleviating: Reports: None Associated Signs and Symptoms: Denies: Swelling, Redness, Bruising, Fever, Nuchal rigidity, Weakness, Headache, Paresthesia Related History: Reports: Previous neck injury Meningitis Risk Factors: Reports: None Cervical Spine Injury Risk Factors: Reports: None Carotid Bruit Present: No Pain on Passive Flexion: Yes Positive Kernig's Sign: No ROM Limited In: Present: Flexion, Extension Pain Located at: posterior neck Tenderness: Present: Paraspinal Focal Weakness: Present: None Focal Sensory Loss: Reports: None Nexus Low Risk Criteria: No post-midline CS tender Differential Diagnoses: Arthritis, Dystonia, Torticollis Review of Systems - Review Of Systems Constitutional: Reports: No symptoms Eyes: Reports: No symptoms Ears, Nose, Mouth, Throat: Reports: No symptoms Respiratory: Reports: No symptoms Cardiac: Reports: No symptoms GI: Reports: No symptoms : Reports: No symptoms Musculoskeletal: Reports: Muscle pain, Neck pain Skin: Reports: No symptoms Neurological: Reports: No symptoms Endocrine: Reports: No symptoms Hematologic/Lymphatic: Reports: No symptoms All Other Systems: Reviewed and Negative Past Medical History - Past Medical History Previously Healthy: Yes Endocrine: Reports: None Cardiovascular: Reports: None Respiratory: Reports: None Hematological: Reports: None Gastrointestinal: Reports: None Genitourinary: Reports: Kidney stones Neuro/Psych: Reports: None, Depression Musculoskeletal: Reports: None Cancer: Reports: None Last Menstrual Period: hysterectomy - Surgical History General Surgical History: Reports: None - Family History Family History: Reports: None - Social History Smoking Status: Never smoker Hx Substance Use: No Alcohol Screening: Occasionally Lives: With family Physical Exam - Physical Exam Appearance: Well-appearing, No pain distress, Well-nourished Pain Distress: Moderate Eyes: QUANG, EOMI, Conjunctiva clear ENT: Ears normal, Nose normal, Oropharynx normal Neck: Supple Respiratory: Airway patent, Breath sounds clear, Breath sounds equal, Respirations nonlabored Cardiovascular: RRR, Pulses normal, No rub, No murmur GI/: Soft, Nontender, No masses, Bowel sounds normal, No Organomegaly Musculoskeletal: Limited ROM Skin: Warm, Dry, Normal color Neurological: Sensation intact, Motor intact, Reflexes intact, Cranial nerves intact, Alert, Oriented Psychiatric: Affect appropriate, Mood appropriate Interpretation - Radiology Interpretation Radiology Interpretation By: Radiologist Radiology Results: Positive Exam Interpreted: CT Scan Critical Care Note - Critical Care Note Total Time (mins): 0 Course - Course Orders, Labs, Meds: Orders Category Date Time Status Hydrocodone Bit/Acetaminophen [[place] 7.5-325] MEDS 06/23/17 10:41 Stat 1 tab PO ONCE STA CT CERVICAL SPINE W/O CONTRAST Stat RADS 06/23/17 10:08 Completed Vital Signs: Temp Pulse Resp BP Pulse Ox 06/23/17 09:37 97.7 F 105 H 20 96/69 95 Departure - Departure Time of Disposition: 10:42 Disposition: HOME SELF-CARE Discharge Problem: DDD (degenerative disc disease), cervical Instructions: Degenerative Disc Disease (ED) Condition: Good Pt referred to PMD for follow-up: Yes IPMP verified?: No Additional Instructions: norco 5mg q 6hrs prn pain #6--keep appt with dr deutsch tomorrow Allergies/Adverse Reactions: Allergies codeine Allergy (Verified 06/23/17 09:49) Penicillins Allergy (Verified 06/23/17 09:49) Sulfa (Sulfonamide Antibiotics) Allergy (Verified 06/23/17 09:49) nitrofurantoin [From Macrodantin] Adverse Reaction (Verified 06/23/17 09:49) steroids Allergy (Uncoded 06/23/17 10:17) Home Medications: Ambulatory Orders Lorazepam [Ativan] 0.5 mg PO TID #90 09/20/16 Albuterol Sulfate 0.083% Neb [Albuterol 0.083% Neb] 1 vial NEB [id number] PRN Atorvastatin Calcium 10 mg PO DAILY 06/23/17 Cyclobenzaprine HCl [Flexeril] 10 mg PO BID 06/23/17 Hydroxyzine HCl [Atarax] 25 mg PO QID 06/23/17 Tiotropium Aurora [Spiriva] 1 cap IH DAILY 06/23/17 Valacyclovir HCl [Valacyclovir] 500 mg PO TID 06/23/17 Disposition Discussed With: Patient, Family
--- NOTE | 2017-06-23 10:38 | CT ---
EXAM: CT cervical spine without contrast. HISTORY: Posterior neck pain COMPARISON: MRI cervical spine 10/01/2016 TECHNIQUE: Serial axial images of the cervical spine were obtained from the skull base through the l j carlos apices without contrast. These were viewed in multiple planes. FINDINGS: Vertebral bodies demonstrate no acute compression fracture or subluxation. There is disc space narrowing and osteophyte formation at C6-C7. There is moderate facet arthropathy. There is deg enerative change at the articulation of the odontoid and C1. There is severe left neural foraminal na rrowing noted at C6-C7. The cervical spine demonstrates mild straightening. Soft tissues are unremark able. There is mild emphysema. IMPRESSION: 1. No acute compression fracture or subluxation. 2. Multilevel degenerative disease with severe left neural foraminal narrowing at C6-C7. 3. Mild straightening may represent positioning versus muscle spasm.
[2017-06-23] MEDS ORDERED: NORCO 7.5-325 PO STA (10:41)
== END 2017-06-23 10:54 | disposition home or self-care (01) ==
LOC: ED 09:37
DX: M50.30 Other cervical disc degeneration, unspecified cervical region (principal)
CPT/HCPCS: 99283

== ENCOUNTER 2017-06-24 15:56 | Outpatient (CLI) ==
[2017-06-23 09:46] VITALS: BMI 24.5
== END 2017-06-24 15:57 | disposition home or self-care (01) ==
LOC: LAB 15:56
PROVIDERS: ATTEND Internal Medicine Rheumatology
DX: R74.0 Nonspecific elevation of levels of transaminase and lactic acid dehydrogenase [LDH] (principal)
CPT/HCPCS: 36415; 80076

== ENCOUNTER 2017-07-16 15:10 | Outpatient (CLI) ==
--- NOTE | 2017-07-17 11:59 | MRI ---
EXAM: MRI lumbar spine without IV contrast. DATE: 16 July 2017. HISTORY: Lumbago with left-sided sciatica. TECHNIQUE: Sagittal and axial T1W and T2W sequences of the lumbar spine along with sagittal IR and c oronal T2W sequences were obtained using 1.2 Lise magnet. No IV contrast. COMPARISON: LS spine series [address] abdomen/pelvis 04/18/2016. FINDINGS: There are five [id number] lumbar vertebra. Slight rightward curvature of the lumbar spine is noted. A 2.7 mm anterior subluxation of S1 relative to L5 is noted. No other subluxation, acute fracture, osseous malignancy, or pars interarticularis defect is demonstrated. Lumbar vertebra are normal in height. Modic type 2 degenerate endplate changes are marked at L5-S1. T2W/T1W bone m arrow signal is somewhat heterogeneous due to areas of fatty infiltration. Osteophytes are visible a t multiple lumbar vertebra, and most pronounced at L5-S1. Disc desiccation is seen at L2-3, L3-4, an d L5-S1. Minor L2-3, mild L3-4, and moderate/marked L5-S1 disc space narrowing is detected. No acut e sacral fracture or stress reaction is detected. SI joints are unremarkable. Abundant epidural fat at L5-S1 and the sacral canal causes narrowing of the thecal sac. Conus medullaris terminates at L1 . Visible spinal cord is normal. No retroperitoneal lymphadenopathy, paraspinal mass, or aortic aneurysm is detected. Paraspinal musc ulature is symmetric bilaterally. Visible portions of the liver, spleen, pancreas, adrenal glands, a nd left kidney are normal. A T2W bright, T1W slightly dark, 5 mm focus in the medial cortex upper po le right kidney is not definitively seen on the previous CT scan. No bowel obstruction or malignancy is apparent. Segmental analysis: T11-12: Normal. T12-L1: Normal. L1-2: Normal. L2-3: Small concentric disc bulge, minor facet arthropathy, and dorsal epidural fat cause triangulat ion canal and minor right foraminal narrowing. Right L2 nerve root contacts the disc bulge near the lateral margin of the foramen. L3-4: Small concentric disc bulge and dorsal epidural fat cause triangulation of the canal and minor bilateral foraminal encroachment. L4-5: Minor posterior to foraminal disc bulge, minor right facet arthropathy, and mild left facet ar thropathy cause minor right and mild left foraminal narrowing. No central canal stenosis. L5-S1: Moderate concentric disc bulge, minor right posterolateral spondylotic ridge at the L5 inferi or plate, and minor facet arthropathy cause mild right and minor left foraminal narrowing. Each L5 n erve root contacts the disc bulge/osteophyte near the lateral margin of the foramen. Abundant epidura l fat causes mild narrowing of the thecal sac. IMPRESSIONS: 1. Lumbar spine mild spondylosis, minor/mild facet arthropathy, and multilevel DDD. 2. Multilevel foraminal stenoses (minor/mild). Right L2 and both L5 nerve roots contact disc bulges near the foramen, and may be sources for pain/radiculopathy. 3. Multilevel central canal stenoses (L2-3: Minor. L3-4: Minor. L5-S1: Mild). 4. Spinal lipomatosis at L5-S1 and sacral canal. 5. Benign-appearing bone marrow fatty infiltration. 6. Right kidney T2W bright focus - likely benign cyst, but not fully characterized.
== END 2017-07-16 15:11 | disposition home or self-care (01) ==
LOC: RAD 15:10
PROVIDERS: ATTEND Emergency Medicine
DX: M54.42 Lumbago with sciatica, left side (principal); G89.29 Other chronic pain

== ENCOUNTER 2017-10-18 10:59 | Outpatient (CLI) ==
[2017-10-13 17:41] VITALS: BMI 24.5
--- NOTE | 2017-10-18 14:31 | DI ---
EXAM: Eight views of the cervical spine HISTORY: Cervical radiculopathy. COMPARISON: Cervical spine 09/20/2016 with MRI 10/18/2017 FINDINGS: There is straightening the cervical spine. There is no acute compression fracture or sublu xation. There is moderate facet arthropathy. There is no lytic or blastic lesion. Neural foramen d emonstrate narrowing at C6-C7 due to posterior disc osteophyte formation. There is no segmental insta bility noted. IMPRESSION: 1. No acute compression fracture or subluxation. 2. Moderate degenerative disease throughout the cervical spine with questionable narrowing at C6-C7. For further evaluation, please see MRI cervical spine same day.
--- NOTE | 2017-10-18 14:33 | DI ---
Exam: Seven views of the lumbar spine with flexion and extension radiographs. Comparison: MRI performed 07/16/2017. Reason for exam: Spondylolisthesis. FINDINGS: There is mild dextroscoliosis in the lumbar spine. No vertebral body height loss is seen. Degenerative disease is seen with intervertebral body disc space height narrowing and osteophyte fo rmation with facet hypertrophy. There is relative preservation of the lumbar lordotic curve. No abn ormal motion segments are seen with flexion or extension radiographs. Impression: 1. No acute fracture or listhesis in the lumbar spine. 2. Multilevel discogenic disease with intervertebral body disc space height narrowing and osteophyte formation with facet hypertrophy. 3. No abnormal motion segments with flexion or extension
--- NOTE | 2017-10-19 04:45 | MRI ---
EXAM: MRI cervical spine without IV contrast. DATE: 18 October 2017. HISTORY: Cervical radiculopathy. Neck pain. DDD. TECHNIQUE: Sagittal and axial T1W and T2W sequences of the cervical spine along with sagittal IR and coronal T2W sequences were obtained using 1.2 Lise magnet. No IV contrast. COMPARISON: C-spine series 18 October 2017. MRI C-spine 10/01/2016. CT C-spine 23 June 2017. FINDINGS: Minor leftward curvature of the mid cervical spine is observed. No acute c-spine fracture , subluxation, osseous malignancy, or jumped facet is evident. Cervical vertebra are normal in heigh t. T1W bone marrow signal is brighter than typically seen. Small anterior osteophytes, mild/moderat e Modic type 2 degenerate endplate changes and mild disc space narrowing are present at C6-7. Remain ing intervertebral discs are normal in height. Cervical and upper thoracic spinal cord reveals no sy rinx, cord edema, myelomalacia, or neoplasm. Visible brainstem is normal. There is no Chiari 1 malformation. No pituitary neoplasm is apparent. There is mild mucosal thickening within the sphenoid sinus. Visible mastoid air cells are normal. No thyroid, submandibular, or parotid gland neoplasm is apparent. Trachea, larynx, and epiglottis ar e normal. No suspicious neck mass, cervical lymphadenopathy, apical lung mass, pneumonia, or pleural effusion is demonstrated. Segmental analysis: C2-3: Posterior midline to left paracentral disc protrusion (2 mm AP x 7 mm transverse) does not con tact the cord. Canal is 11 mm AP. Each foramen is patent. There is moderate right facet arthropathy . C3-4: Broad posterior disc disc/osteophyte complex (2.3 mm AP) touches the cord anteriorly. Canal i s 8.6 mm AP. Mild left foraminal stenosis is due to uncinate hypertrophy and mild left facet arthrop athy. C4-5: Broad posterior disc/osteophyte complex (2 mm AP) with midline disc protrusion (1.2 mm AP x 4. 3 mm transverse) flattens the cord anteriorly. There is mild ligamentum flavum hypertrophy. Canal i s 9 mm AP. Mild right foraminal stenosis is due to uncinate hypertrophy and moderate/marked right fac et arthropathy. C5-6: Posterior midline disc protrusion (2.5 mm AP by 7 mm transverse) indents the anterior midline cord. Canal is 8 mm AP. Mild bilateral foraminal stenoses are due to uncinate hypertrophy and mild facet arthropathy. C6-7: Broad posterior disc/osteophyte complex (2.7 mm AP) does not contact the cord rest. Canal is 8.6 mm AP. Severe left foraminal stenosis is due to uncinate hypertrophy and minor left facet arthro barbara. C7-T1: Normal, except for mild left foraminal narrowing due to mild/moderate left facet arthropathy. T1-2: Normal. IMPRESSIONS: 1. C-spine minor spondylosis, mild levoscoliosis, multilevel facet arthropathy, and multilevel DDD - - similar to September 2016. 2. Multilevel central canal stenoses (C3-4: Mild. C4-5: Mild. C5-6: Mild/moderate. C6-7: Mild). 3. Multilevel cervical cord flattening. No syrinx or myelomalacia. 4. Multilevel cervical foraminal stenoses, especially left C6-7. 5. Mild bone marrow fatty infiltration. 6. Mild sphenoid sinus mucosal disease.
== END 2017-10-18 11:00 | disposition home or self-care (01) ==
LOC: RAD 10:59
PROVIDERS: ATTEND Nurse Practitioner
DX: M54.12 Radiculopathy, cervical region (principal); M43.17 Spondylolisthesis, lumbosacral region

== ENCOUNTER 2018-01-03 19:22 | Emergency (ER) ==
[2018-01-03 19:31] VITALS: BP 123/80; TEMP 99.1; BMI 25.6
[2018-01-03] MEDS ORDERED: PHENERGAN 25 MG/ML VIAL IM STA (19:36)
[2018-01-03] MEDS ORDERED: DILAUDID 2 MG/ML SDV IM STA (19:36)
--- NOTE | 2018-01-03 20:03 | ED.PDOC ---
General ED Provider: Dr. KERWIN BARTON-ER Chief Complaint: Back Pain Stated Complaint: my back is flaring up Time Seen by Physician: 19:30 Mode of Arrival: Wheelchair Information Source: Patient, Family Exam Limitations: No limitations Primary Care Provider: ELOY RODRIGUEZ Nursing and Triage Documentation Reviewed and Agree: Yes Does patient meet sepsis criteria?: No System Inflammatory Response Syndrome: Not Applicable Sepsis Protocol: For patient's 13 years and over: Temp is 96.8 and below OR 101 and greater Pulse >90 BPM Resp >20/minute Acutely Altered Mental Status Are patient's symptoms suggestive of a new infection, such as: -Pneumonia -Skin, Soft Tissue -Endocarditis -UTI -Bone, Joint Infection -Implantable Device -Acute Abdominal Infection -Wound Infection -Meningitis -Blood Stream Catheter Infection -Unknown Musculoskeletal Complaint Exam - Back Pain Complaint/Exam Mechanism of Injury: Reports: No known trauma Onset/Duration: 24 hrs Symptoms Are: Still present Timing: Constant Initial Severity: Moderate Current Severity: Moderate Location: Reports: Discrete (lower back pain) Character: Reports: Dull, Aching Aggravating: Reports: Movements, Lifting Alleviating: Reports: None Associated Signs and Symptoms: Denies: Swelling, Redness, Bruising, Fever, Weakness, Numbness, Tingling, Abdominal pain, Flank pain, Bladder incontinence, Bowel incontinence, Weight loss, Pain with weight bearing Related History: Reports: Previous back injury TAD Risk Factors: Reports: None AAA Risk Factors: Reports: None Cauda Equina Risk Factors: Reports: None Epidural Abcess Risk Factors: Reports: None Related Surgical History: Reports: None Focal Tenderness: Yes Paraspinal Muscle Tenderness: Yes Paraspinal Muscle Spasm: No Scoliosis: No Lordosis: No Kyphosis: No SLR Test: Right Negative, Left Negative Hip Motion Testing Pain: Right Negative, Left Negative Focal Weakness: Present: None Focal Sensory Loss: Present: None Gait: Present: Abnormal Differential Diagnoses: Herniated Disk Review of Systems - Review Of Systems Constitutional: Reports: No symptoms Eyes: Reports: No symptoms Ears, Nose, Mouth, Throat: Reports: No symptoms Respiratory: Reports: No symptoms Cardiac: Reports: No symptoms GI: Reports: No symptoms : Reports: No symptoms Musculoskeletal: Reports: Back pain Skin: Reports: No symptoms Neurological: Reports: No symptoms Endocrine: Reports: No symptoms Hematologic/Lymphatic: Reports: No symptoms All Other Systems: Reviewed and Negative Past Medical History - Past Medical History Previously Healthy: Yes Endocrine: Reports: None Cardiovascular: Reports: None Respiratory: Reports: None Hematological: Reports: None Gastrointestinal: Reports: None Genitourinary: Reports: Kidney stones Neuro/Psych: Reports: None, Depression Musculoskeletal: Reports: None Cancer: Reports: None Last Menstrual Period: na - Surgical History General Surgical History: Reports: None - Family History Family History: Reports: None - Social History Smoking Status: Never smoker Hx Substance Use: No Alcohol Screening: Occasionally - Immunizations Tetanus Shot up to Date: Yes Physical Exam - Physical Exam Appearance: Well-appearing, No pain distress, Well-nourished Pain Distress: Moderate Eyes: QUANG, EOMI, Conjunctiva clear ENT: Ears normal, Nose normal, Oropharynx normal Neck: Supple Respiratory: Airway patent Cardiovascular: RRR, Pulses normal, No rub, No murmur GI/: Soft, Nontender, No masses, Bowel sounds normal, No Organomegaly Musculoskeletal: Limited ROM Skin: Warm, Dry, Normal color Neurological: Sensation intact, Motor intact, Reflexes intact, Cranial nerves intact, Alert, Oriented Psychiatric: Affect appropriate, Mood appropriate Interpretation - Radiology Interpretation Radiology Interpretation By: Radiologist Radiology Results: Negative Exam Interpreted: CT Scan Re-Evaluation - Re-Evaluation Time of Re-Evaluation: 20:45 Status: Improved Vital Signs Stable: Yes Pain Level: 2 Appearance: NAD Lungs: Clear Neuro: Alert and Oriented X3 CV: RRR Critical Care Note - Critical Care Note Total Time (mins): 0 Course - Course Orders, Labs, Meds: Orders Category Date Time Status Hydromorphone HCl [Dilaudid 2 mg/ml Sdv] MEDS 01/03/18 19:36 Discontinued 2 mg IM ONCE STA Promethazine HCl [Phenergan 25 mg/ml Vial] MEDS 01/03/18 19:36 Discontinued 25 mg IM ONCE STA CT LUMBAR SPINE W/O CONTRAST Stat RADS 01/03/18 19:36 Completed Medications Discontinued Medications Generic Name Dose Route Start Last Admin Trade Name Freq PRN Reason Stop Dose Admin Hydromorphone HCl 2 mg 01/03/18 19:36 01/03/18 20:00 Dilaudid 2 Mg/Ml Sdv IM 01/03/18 19:37 2 mg ONCE STA Administration Promethazine HCl 25 mg 01/03/18 19:36 01/03/18 19:58 Phenergan 25 Mg/Ml Vial IM 01/03/18 19:37 25 mg ONCE STA Administration Vital Signs: Temp Pulse Resp BP Pulse Ox 01/03/18 19:23 99.1 F 114 H 20 123/80 95 Departure - Departure Time of Disposition: 20:45 Disposition: HOME SELF-CARE Discharge Problem: Chronic low back pain Qualifiers: Back pain laterality: unspecified Sciatica presence: without sciatica Qualified Code(s): M54.5 - Low back pain; G89.29 - Other chronic pain Instructions: Chronic Back Pain (ED) Condition: Good Pt referred to PMD for follow-up: Yes IPMP verified?: No Additional Instructions: f/u with pcp Allergies/Adverse Reactions: Allergies corn Allergy (Severe, Unverified 01/03/18 19:34) lethargic fructose Allergy (Severe, Unverified 01/03/18 19:34) throat swelled Patient will notify drugstore Milk Containing Products Allergy (Severe, Unverified 01/03/18 19:34) Severe diarrhea wheat Allergy (Mild, Unverified 01/03/18 19:34) sinus problems codeine Allergy (Verified 01/03/18 19:34) Penicillins Allergy (Verified 01/03/18 19:34) Sulfa (Sulfonamide Antibiotics) Allergy (Verified 01/03/18 19:34) nitrofurantoin [From Macrodantin] Adverse Reaction (Verified 01/03/18 19:34) eggs Allergy (Severe, Uncoded 01/03/18 19:34) severe diarrhea steroids Allergy (Uncoded 01/03/18 19:34) Home Medications: Ambulatory Orders Albuterol Sulfate 0.083% Neb [Albuterol 0.083% Neb] 1 vial NEB RTQ6H PRN Cyclobenzaprine HCl [Flexeril] 10 mg PO BID 06/23/17 Hydroxyzine HCl [Atarax] 25 mg PO QID 06/23/17 Tiotropium [place] [Spiriva] 1 cap IH DAILY 06/23/17 Duloxetine HCl [Cymbalta] 20 mg PO DAILY 01/03/18 Disposition Discussed With: Patient, Family
--- NOTE | 2018-01-03 20:42 | CT ---
EXAM: CT lumbar spine without intravenous contrast 01/03/2018. Sagittal and coronal reformatted jazmin ges obtained HISTORY: Lower back pain and COMPARISON: 07/16/2017 FINDINGS: Anatomic alignment is stable. A normal lumbar lordosis is maintained. Vertebral bodies a ppear intact without fracture. The facet joints align normally. Multilevel chronic degenerative disc disease. Disc disease and associated degenerative endplate alejandro ge is most severe at L5-S1. There is no evidence of acute fracture or subluxation at any level. IMPRESSION: 1. No acute osseous abnormality of the lumbar spine 2. Chronic degenerative disc disease most severe L5-S1. These findings appears similar in distribut ion as compared to the prior MRI performed 07/16/2017.
== END 2018-01-03 20:51 | disposition home or self-care (01) ==
LOC: ED 19:22
DX: M54.5 Low back pain (principal); G89.29 Other chronic pain
CPT/HCPCS: 96372; 99282

== ENCOUNTER 2018-01-04 14:35 | Emergency (ER) ==
[2018-01-04 14:42] VITALS: BP 107/69; TEMP 99.6; BMI 25.6
--- NOTE | 2018-01-04 15:29 | ED.PDOC ---
General ED Provider: Dr. VINCENZO CONDON Chief Complaint: Back Pain Stated Complaint: was seen yesterday with complaints of back pain given shots states he was told to return if not better. Here today still not better. Time Seen by Physician: 15:15 Mode of Arrival: Wheelchair Information Source: Patient Primary Care Provider: ELOY RODRIGUEZ Seen Within Last 72 Hours for Same Complaint By: ED (had imaging and given shots for pain ) Nursing and Triage Documentation Reviewed and Agree: Yes Does patient meet sepsis criteria?: No System Inflammatory Response Syndrome: Not Applicable Sepsis Protocol: For patient's 13 years and over: Temp is 96.8 and below OR 101 and greater Pulse >90 BPM Resp >20/minute Acutely Altered Mental Status Are patient's symptoms suggestive of a new infection, such as: -Pneumonia -Skin, Soft Tissue -Endocarditis -UTI -Bone, Joint Infection -Implantable Device -Acute Abdominal Infection -Wound Infection -Meningitis -Blood Stream Catheter Infection -Unknown Review of Systems - Review Of Systems Constitutional: Reports: No symptoms Eyes: Reports: No symptoms Ears, Nose, Mouth, Throat: Reports: No symptoms Respiratory: Reports: No symptoms Cardiac: Reports: No symptoms GI: Reports: No symptoms : Reports: No symptoms Musculoskeletal: Reports: Back pain, Neck pain Skin: Reports: No symptoms Neurological: Reports: Anxiety Endocrine: Reports: No symptoms Hematologic/Lymphatic: Reports: No symptoms All Other Systems: Reviewed and Negative Past Medical History - Past Medical History Previously Healthy: Yes Endocrine: Reports: None Cardiovascular: Reports: None Respiratory: Reports: None Hematological: Reports: None Gastrointestinal: Reports: None Genitourinary: Reports: Kidney stones Neuro/Psych: Reports: None, Depression Musculoskeletal: Reports: None Cancer: Reports: None Last Menstrual Period: unknown - Surgical History General Surgical History: Reports: None - Family History Family History: Reports: None - Social History Smoking Status: Never smoker Hx Substance Use: No Alcohol Screening: Occasionally Physical Exam - Physical Exam Appearance: Well-appearing Ill-appearing: Mild Pain Distress: Moderate Neck: Supple (soft collor in place) Respiratory: Airway patent, Breath sounds clear, Breath sounds equal, Respirations nonlabored Cardiovascular: RRR, Pulses normal, No rub, No murmur GI/: Soft Musculoskeletal: Normal strength, ROM intact, No edema, No calf tenderness Skin: Warm, Dry, Normal color Neurological: Sensation intact, Motor intact, Reflexes intact, Cranial nerves intact, Alert, Oriented Psychiatric: Anxious Critical Care Note - Critical Care Note Total Time (mins): 0 Comments: educated patient that the ER does not manage chronic pain. Her return to the Er after a visit last night for pain medications does not warrant given Narcotic prescription. She did not mention to the Er staff that she was allergic to Toradol until it was time to give it. she stated that it gave her blisters on the legs but could not tell us when she got it last. She also started complaining of " sudden onset of New pain " on her neck since she was in the room. I offered to image it. she was agreeable only if I promised to give her Dilaudid for pain. When I declined she started that I was mean and was not to be trusted. She then left the room without signing. Course - Course Orders, Labs, Meds: Orders Category Date Time Status Ketorolac Tromethamine [Toradol] MEDS 01/04/18 15:49 Discontinued 60 mg IM ONCE STA Medications Discontinued Medications Generic Name Dose Route Start Last Admin Trade Name Brian PRN Reason Stop Dose Admin Ketorolac Tromethamine 60 mg 01/04/18 15:49 01/04/18 16:05 Toradol IM 01/04/18 15:50 Not Given ONCE STA Vital Signs: Temp Pulse Resp BP Pulse Ox 01/04/18 14:35 99.6 F 107 H 20 107/69 93 L Departure - Departure Time of Disposition: 16:20 Disposition: HOME SELF-CARE Discharge Problem: Chronic low back pain Qualifiers: Back pain laterality: bilateral Sciatica presence: without sciatica Qualified Code(s): M54.5 - Low back pain Instructions: Chronic Back Pain (ED) Condition: Fair Pt referred to PMD for follow-up: Yes IPMP verified?: No Additional Instructions: Follow up with your PCP for Pain management referral. continue home medications Allergies/Adverse Reactions: Allergies corn Allergy (Severe, Verified 01/04/18 14:42) lethargic fructose Allergy (Severe, Verified 01/04/18 14:42) throat swelled Patient will notify drugstore Milk Containing Products Allergy (Severe, Verified 01/04/18 14:42) Severe diarrhea wheat Allergy (Mild, Verified 01/04/18 14:42) sinus problems codeine Allergy (Verified 01/04/18 14:42) Penicillins Allergy (Verified 01/04/18 14:42) Sulfa (Sulfonamide Antibiotics) Allergy (Verified 01/04/18 14:42) nitrofurantoin [From Macrodantin] Adverse Reaction (Verified 01/04/18 14:42) eggs Allergy (Severe, Uncoded 01/03/18 19:34) severe diarrhea steroids Allergy (Uncoded 01/03/18 19:34) Home Medications: Ambulatory Orders Albuterol Sulfate 0.083% Neb [Albuterol 0.083% Neb] 1 vial NEB RTQ6H PRN Cyclobenzaprine HCl [Flexeril] 10 mg PO BID 06/23/17 Hydroxyzine HCl [Atarax] 25 mg PO QID 06/23/17 Tiotropium [place] [Spiriva] 1 cap IH DAILY 06/23/17 Duloxetine HCl [Cymbalta] 20 mg PO DAILY 01/03/18 Disposition Discussed With: Patient
[2018-01-04] MEDS ORDERED: TORADOL IM STA (15:49)
== END 2018-01-04 16:42 | disposition home or self-care (01) ==
LOC: ED 14:35
DX: M54.5 Low back pain (principal); G89.29 Other chronic pain
CPT/HCPCS: 99283

== ENCOUNTER 2018-06-20 16:16 | Outpatient (CLI) | payer OTHER | END 2018-06-20 16:17 | disposition home or self-care (01) | LOC: RHC-LAB 16:16 | PROVIDERS: ATTEND General Practice | DX: R53.83 Other fatigue (principal); I49.9 Cardiac arrhythmia, unspecified; R40.0 Somnolence; Z79.899 Other long term (current) drug therapy | CPT/HCPCS: 36415; 80053; 80061; 81001; 84443; 85025; 85651 ==

== ENCOUNTER 2018-07-23 15:10 | Outpatient (CLI) | payer OTHER | END 2018-07-23 15:30 | disposition short-term general hospital (02) | LOC: AMBL 15:10 | PROVIDERS: ATTEND Emergency Medicine | DX: R00.0 Tachycardia, unspecified (principal); R53.1 Weakness; R53.83 Other fatigue; R06.02 Shortness of breath ==

== ENCOUNTER 2018-09-01 13:51 | Outpatient (CLI) | payer OTHER | END 2018-09-01 13:52 | disposition home or self-care (01) | LOC: RHC-LAB 13:51 | PROVIDERS: ATTEND General Practice | DX: R74.0 Nonspecific elevation of levels of transaminase and lactic acid dehydrogenase [LDH] (principal) | CPT/HCPCS: 36415; 80076 ==

== ENCOUNTER 2018-09-16 06:46 | Outpatient (CLI) ==
--- NOTE | 2018-09-16 12:01 | ECHO2D ---
Date of Exam: 09/16/18 Ordering Physician: DR. VIVI PARK Room #: OP Reason for Echo: SOA, TACHYCARDIA M-Mode Normal Adult Results LV Dimensions Normal Adult Results AoV Opening excursions >1.6 >1.6 LVEDD-base- 3.5-5.8 3.8 Ao root dimensions 2.0-3.7 2.9 LVESD-base- 3.1-4.6 L. Atrium dimensions 1.9-3.8 3.0 Post. Wall thickness 0.8-1.1 1.0 IV septum (thickness) 0.7-1.2 1.0 Post. Wall excursion 0.72-1.3 NORMAL Septal motion NORMAL Systolic motion R. Ventricular cavity 1.5-2.0 NORMAL LVEF 60% 72% Paradoxical septal wall motion NORMAL 2-D : 2-D M Mode Echocardiogram was performed using apical four chamber and left parasternal long and short axis views. Mitral, tricuspid and aortic valves appear to be normal. Contractility of the left ventricle seems to be normal, so is the cavity size. Left atrial cavity size and aortic root appear to be normal. There is no pericardial effusion. There is no thrombus noted in the left ventricular or left aortic cavity. No mitral valve prolapse noted. M-MODE: MV: NORMAL AV: NORMAL TV: NORMAL PV: CHAMBER SIZE: NORMAL WALL MOTION: NORMAL PERICARDIUM: NORMAL INTERPRETATION: 1. NORMAL 2 "D" "M" MODE ECHO MTDD
--- NOTE | 2018-09-19 11:13 | HOLTER ---
PATIENT INFORMATION AND COMMENTS Attending Physician: DR. VIVI PARK Indications: SHORT OF BREATH __ Patient Medications: FLEXERIL, ATARAX, PLAQUENIL, NEURONTIN, ATIVAN, VALTREX, TYLENOL __ Pre-procedure Summary: Protocol: Standard Heart Rate Started: 09/16/18829 Minimum: 90 BPM Weight: 159 LBS Ended: 09/17/18829 Maximum: 140 BPM Height: 62" Duration: 16 HOURS Average: 100 BPM _ INTERPRETATIONS/OBSERVATIONS: 1. BASIC RHYTHM: SINUS, RATE 90 BPM TO 140 BPM, AVERAGE 100 BPM 2. INFREQUENT PVC'S AND PAC'S 3. NO ST-T WAVE CHANGES FROM BASELINE 4. HOLTER WAS ON FOR 16 HOURS 5. NO CORRELATION WITH ACTIVITY LOG 6. QUALITY OF HOLTER BELOW AVERAGE MTDD
== END 2018-09-16 06:47 | disposition home or self-care (01) ==
LOC: CAR 06:46
PROVIDERS: ATTEND Internal Medicine
DX: R06.02 Shortness of breath (principal); R00.0 Tachycardia, unspecified
CPT/HCPCS: 93227

== ENCOUNTER 2018-09-19 06:48 | Outpatient (CLI) | payer OTHER ==
[2018-09-19] MEDS ORDERED: ATROPINE SULFATE PFS ONE (07:06)
[2018-09-19] MEDS ORDERED: DOBUTAMINE 500 MG-D5W 250 ML 250 ML IV ONE (07:06)
--- NOTE | 2018-09-19 10:41 | NM ---
Exam: Cardiac stress test with SPECT imaging. Reason for exam: Shortness of breath with tachycardia Comparison: None. Date of exam: 09/19/2018 Radiopharmaceutical: Rest: 12.1mCi Tc-99m Sestamibi i.v. Stress: 31.5mCi Tc-99m Sestamibi i.v. Dobutamine FINDINGS: Standard myocardial perfusion images were obtained after injection of technetium 99m sesta mibi under resting conditions The patient was then stressed with Dobutamine IV. Please see separate report by performing physician for details of the stress protocol Standard myocardial perfusion images were obtained after injection of technetium 99m sestamibi under stress conditions. Gated images were performed to evaluate left ventricular ejection fraction The stress perfusion images demonstrate uniform distribution of activity in the left ventricular myoc ardium. The rest perfusion images demonstrate uniform distribution of activity without evidence of significan t redistribution or ischemia. The left ventricular ejection fraction is calculated to be 84%. Impression: 1. Normal appearing left ventricular myocardial perfusion without evidence of significant ischemia 2. Left ventricular ejection fraction measures 84%.
--- NOTE | 2018-09-22 10:30 | ECHOSTRESS ---
Date of Exam: 09/19/18 Ordering Physician: DR. VIVI PARK Reason for Echo: SOB, TACHYCARDIA, DOBUTAMINE STRESS TEST M-Mode Normal Adult Results LV Dimensions Normal Adult Results AoV Opening excursions >1.6 LVEDD-base- 3.5-5.8 Ao root dimensions 2.0-3.7 LVESD-base- 3.1-4.6 L. Atrium dimensions 1.9-3.8 Post. Wall thickness 0.8-1.1 IV septum (thickness) 0.7-1.2 Post. Wall excursion 0.72-1.3 Septal motion Systolic motion R. Ventricular cavity 1.5-2.0 LVEF 60% Paradoxical septal wall motion 2-D: NORMAL LEFT VENTRICULAR CONTRACTILITY--RESTING AND WITH DOBUTAMINE INFUSION M-MODE: MV: AV: TV: PV: CHAMBER SIZE: WALL MOTION: NORMAL LEFT VENTRICULAR CONTRACTILITY--RESTING AND WITH DOBUTAMINE INFUSION PERICARDIUM: INTERPRETATION: 1. NORMAL LEFT VENTRICULAR CONTRACTILITY--RESTING AND WITH DOBUTAMINE INFUSION MTDD
--- NOTE | 2018-09-22 10:46 | DOBSTECHST ---
Ordering Physician: DR. VIVI PARK Date of Test: 09/19/18 Reason for Examination: SOB, TACHYCARDIA Height: 62" Weight: 159 LBS Current Medications: ZOLOFT, ATARAX, TOPAMAX, FLEXERIL, PLAQUIL, ATIVAN, NEURONTIN Target Heart Rate: 138/163 S-T Segment Stage Time HR BPM BP MMHG Rhythm +/- Elevation Depression Symptoms Control Sitting 87 118/78 SR X NONE Dobutamine 250mg/D5W 5cmg/KG/mn 10cmg/KG/mn 3:00 93 126/80 SR X NONE 15cmg/KG/mn 2:00 100 142/76 SR X NONE 20cmg/KG/mn 2:00 109 150/72 SR X NONE 25cmg/KG/mn 2:00 113 148/72 SR X NONE 30cmg/KG/mn 2:00 117 SR X NONE 35cmg/KG/mn 2:00 123 156/68 SR X .125 ATROPINE 40cmg/KG/mn 3:18 130 154/68 SR X 1 MIN POST INFUSION z 128 150/70 SR X NONE 5 MIN POST INFUSION z 113 150/82 SR X NONE DURATION OF INFUSION 16:18 MAXIMUM HEART RATE REACHED 130 BPM 98% OXYGEN SATURATION ON ROOM AIR WITH DOBUTAMINE INFUSION Interpretation: 1. NO EVIDENCE OF ISCHEMIA BY ST-T WAVE 2. NO CHEST PAIN OR DISCOMFORT 3. NORMAL LEFT VENTRICULAR CONTRACTILITY--RESTING AND WITH DOBUTAMINE INFUSION SESTAMIBI TO FOLLOW MTDD
== END 2018-09-19 06:49 | disposition home or self-care (01) ==
LOC: CAR 06:48
PROVIDERS: ATTEND Internal Medicine
DX: R06.02 Shortness of breath (principal); R00.0 Tachycardia, unspecified

== ENCOUNTER 2018-09-22 13:17 | Outpatient (CLI) | payer OTHER | END 2018-09-22 13:18 | disposition home or self-care (01) | LOC: CAR 13:17 | PROVIDERS: ATTEND Psychiatry & Neurology Sleep Medicine | DX: G47.33 Obstructive sleep apnea (adult) (pediatric) (principal) | CPT/HCPCS: 95810 ==

== ENCOUNTER 2018-12-09 10:34 | Outpatient (POV) ==
[2018-11-06 18:14] VITALS: BMI 29.2
== END 2018-12-09 17:00 ==
LOC: OUTPT 10:34
PROVIDERS: ATTEND Otolaryngology
DX: H90.5 Unspecified sensorineural hearing loss (principal)
CPT/HCPCS: 92557; 92567

== ENCOUNTER 2018-12-10 12:55 | Outpatient (CLI) ==
[2018-11-06 18:14] VITALS: BMI 29.2
--- NOTE | 2018-12-10 15:58 | DI ---
EXAM: Right ankle. Three-view HISTORY: Right ankle pain COMPARISON: None FINDINGS: The bones are normal. Ankle mortise is symmetric. No focal soft tissue abnormality. IMPERSSION: Normal examination.
--- NOTE | 2018-12-10 15:59 | DI ---
EXAM: Right knee four view HISTORY: Right knee pain COMPARISON: None FINDINGS: The bones are normal. The medial, lateral, and patellofemoral compartments are normal in h eight. No joint effusion. IMPERSSION: Normal examination.
== END 2018-12-10 12:56 | disposition home or self-care (01) ==
LOC: CAR 12:55
PROVIDERS: ATTEND Internal Medicine
DX: M25.561 Pain in right knee (principal); R06.02 Shortness of breath
CPT/HCPCS: 94761